=== PATIENT | male | born 1960 | race Caucasian/White ===

== ENCOUNTER 2018-06-22 06:12 | Day surgery (SDC) | payer OTHER ==
[2018-06-22] MEDS ORDERED: LIDOCAINE 2% (SDV) 5 ML INJ (07:51)
[2018-06-22] MEDS ORDERED: PROPOFOL 20 ML (07:51)
[2018-06-22] MEDS ORDERED: ETOMIDATE 20 MG INJ (07:52)
[2018-06-22] MEDS ORDERED: FENTAnyl 50 MCG/ML VIAL (07:52)
[2018-06-22] MEDS ORDERED: MIDAZOLAM 1 MG/ML 2 ML INJ (07:52)
[2018-06-22] MEDS ORDERED: ONDANSETRON 4 MG INJ IV (08:00)
== END 2018-06-22 15:40 | disposition home or self-care (01) ==
LOC: GIL 06:12
DX: Z12.11 Encounter for screening for malignant neoplasm of colon (principal); K64.4 Residual hemorrhoidal skin tags; K29.00 Acute gastritis without bleeding; E11.9 Type 2 diabetes mellitus without complications
CPT/HCPCS: 43239; 82962; 88305; 88312